=== PATIENT | female | born 1965 | race African-American/Black ===

== ENCOUNTER → 2019-09-11 | Day surgery (SDC) | payer OTHER ==
[~2019-09-11] MED LIST: ABILIFY5 MG PO; AMBIEN5 MG PO; ATENOLOL-CHLOR1 EAC1 PO; DEPAKOTE500 MG PO; DONEPEZIL HCL10 MG PO; EFFEXOR XR 3737.5 MG PO; FENTANYL CITRATE/PF 100MCG/2 ML INJ ONE; FLUTICASONE; GLUCAGON FOR INJ 1 MG VIAL ONE; IBUPROFEN400 MG PO; LABETALOL HCL 5 MG/ML 20ML VIAL ONE; LIDOCAINE HCL 2% LOCAL INJ 5 ML SDV VIAL INJ ONE; LYRICA75 MG PO; MIDAZOLAM HCL 2 MG/2 ML VIAL ONE; PROPOFOL IV EMULSION 10 MG/ML 50 ML VIAL ONE; SIMVASTATIN40 MG PO; VALIUM2 MG PO
[2019-09-11 14:25] VITALS: BP 146/90
[2019-09-11 15:54] LABS: WBC,FECAL (FECAL LACTOFERRIN) NEGATIVE (NEGATIVE)
--- OUTSIDE RECORDS SUMMARY | 2019-09-11 19:35 | XMS REPORT ---
[facility] Address Unknown Phone Unavailable Care Team Providers Care Racebook Writer Name Role Phone Unavailable Unavailable Payers Payer Name Policy Type Policy Number Effective Date Expiration Date Problems This patient has no known problems. Allergies, Adverse Reactions, Alerts Allergy Name Allergy Type Status Severity Reaction(s) Onset Date Inactive Date Treating Clinician Comments No Known Allergies DA Active U 2016-12-27 00:00:00 Medications This patient has no known medications. Results Test Description Test Time Test Comments Text Results Atomic Results Result Comments UA RFLX MICR CULT IF INDICATED 2019-08-04 13:09:00 UA COLOR (test code=COLU) YELLOW YELLOW UA APPEARANCE (test code=APPU) SL CLOUDY CLEAR UA GLUCOSE DIPSTICK (test code=DGLUU) NEGATIVE MG/DL NEGATIVE UA BILIRUBIN DIPSTICK (test code=BILU) NEGATIVE NEGATIVE UA KETONE DIPSTICK (test code=KETU) NEGATIVE MG/DL NEGATIVE UA SPECIFIC GRAVITY (test code=SGU) 1.005 1.000-1.030 UA BLOOD DIPSTICK (test code=AMANDA) NEGATIVE NEGATIVE UA PH DIPSTICK (test code=ADITYA) 7.0 5.0-8.0 UA PROTEIN DIPSTICK (test code=PROU) NEGATIVE MG/DL NEGATIVE UA UROBILINOGEN DIPSTICK (test code=URO) 0.2 EU/dL <=1.0 UA NITRITE DIPSTICK (test code=SHANTAL) NEGATIVE NEGATIVE UA LEUKOCYTE ESTERASE DIPSTICK (test code=LEUU) 2+ NEGATIVE UA WBC (test code=WBCUR) 11-20 /HPF 0-3 >10 WBC/HPF=PYURIA PRESENT URINE CULTURE PROCESSED UA RBC (test code=RBCU) NONE SEEN /HPF 0-3 UA EPITHELIAL CELLS (test code=EPIU) FEW /LPF NONE-FEW UA BACTERIA (test code=BACU) 1+ /HPF NEGATIVE SOURCE OF URINE: CLEAN CATCHIndication for culture: Dysuria/FrequencyUA [id number] 14:12:00* Test Item Value Reference Range Comments UA WBC (test code=WBCU) 30-40 /HPF 0-3 UA RBC (test code=RBCU) NONE SEEN /HPF 0-3 UA EPITHELIAL CELLS (test code=EPIU) MODERATE /LPF NONE-FEW UA BACTERIA (test code=BACU) 3+ /HPF NEGATIVE URINALYSIS [id number] 14:07:00* Test Item Value Reference Range Comments UA COLOR (test code=COLU) YELLOW YELLOW UA APPEARANCE (test code=APPU) CLEAR CLEAR UA GLUCOSE DIPSTICK (test code=DGLUU) NEGATIVE MG/DL NEGATIVE UA BILIRUBIN DIPSTICK (test code=BILU) NEGATIVE NEGATIVE UA KETONE DIPSTICK (test code=KETU) NEGATIVE MG/DL NEGATIVE UA SPECIFIC GRAVITY (test code=SGU) 1.015 1.000-1.030 UA BLOOD DIPSTICK (test code=AMANDA) NEGATIVE NEGATIVE UA PH DIPSTICK (test code=ADITYA) 6.5 5.0-8.0 UA PROTEIN DIPSTICK (test code=PROU) NEGATIVE MG/DL NEGATIVE UA UROBILINOGEN DIPSTICK (test code=URO) 0.2 EU/dL <=1.0 UA NITRITE DIPSTICK (test code=SHANTAL) NEGATIVE NEGATIVE UA LEUKOCYTE ESTERASE DIPSTICK (test code=LEUU) 2+ NEGATIVE BREAST ULTRASOUND [id number] 12:21:00- BREAST ULTRASOUND BILATERALULTRASOUND OF BOTH BREASTS: 07/14/2018Comparison is made to exams dated 07/08/2016 mammogram, 06/09/2015 mammogram, and 04/15/2014 mammogram - [facility]-. Color flow and real-time ultrasound of both breasts were performed. Nuñez scale images of the real-time examination were reviewed. Breast tissue has scattered fibroglandular background echotexture. Bilateral survey ultrasound demonstrates no suspicious sonographic abnormality; po stoperative changes in the right breast. No axillary lymphadenopathy.IMPRESSION : NEGATIVE There is no sonographic evidence of malignancy. Resume annual screen ing mammography in one year. Aram Nava M.D. ss/:07/14/2018 12:21:00 Entry: cp - 07/17/2018 08:36:31Imaging Technologist: Karley YOUNG, [facility]-FWletter sent: BIRADS 1-2 Combo FU Letter Ultrasound BI-RADS: 1 Negative
--- NOTE | 2019-09-11 21:25 | Operative Report ---
DATE OF PROCEDURE: 09/11/2019 SURGEON: Corwin Jorge MD PROCEDURES: 1. Esophagogastroduodenoscopy with biopsies. 2. Colonoscopy with polypectomy and biopsies. INDICATIONS FOR EGD: History of melena, nausea. INDICATIONS FOR COLONOSCOPY: Colorectal cancer screening, family history of colon cancer both mother and father, chronic diarrhea, and weight loss. MEDICATIONS: The patient was done under MAC, please see Anesthesiologist's note. PROCEDURE IN DETAIL: With the patient in left lateral decubitus position, a flexible fiberoptic Olympus gastroscope was introduced into the esophagus under direct visualization without any difficulty. There was some patchy erythema noted in the distal esophagus. The scope was then advanced with ease into the stomach and mucosa overlying the antrum and the body revealed some diffuse erythema and moderate edema, and biopsies were obtained and sent to stain for H pylori. The pylorus was of normal contour and shape, it was intubated with ease and the scope was advanced all the way to the second portion of the duodenum. Biopsies were obtained from the proximal second portion and the duodenal bulb to rule out sprue. The scope was then withdrawn back into the stomach and retroflexed. Mucosa overlying the fundus and the cardia appeared to be within normal limits. The scope was then straightened out, it was subsequently withdrawn. The patient tolerated the procedure well. IMPRESSION: 1. Distal esophagitis, mild. 2. Gastritis, biopsied. Biopsies sent to stain for Helicobacter pylori. 3. Rule out sprue. PLAN: Follow up histology. Initiate Protonix 40 mg one p.o. q.a.m. a.c. The patient was then turned around. After adequate lubrication of the anal canal, a flexible fiberoptic Olympus colonoscope was inserted into the rectum with ease and advanced all the way to the cecum. Mucosa overlying the cecum appeared to be within normal limits. The ileocecal valve was intubated and the scope was advanced into the terminal ileum, biopsies were obtained. The scope was then withdrawn back into the colon. It was then withdrawn slowly and mucosa overlying the ascending, transverse, descending, sigmoid, and rectum revealed some patchy mild inflammatory changes. Random biopsies were obtained from the left colon as well as from the rectum. Three polyps were hot biopsied from the sigmoid colon. The scope was retroflexed into the distal rectum and small internal hemorrhoids were noted, none of which was actively bleeding. The scope was then straightened out, it was subsequently withdrawn after securing an adequate stool specimen that was sent for the appropriate stool studies. The patient tolerated the procedure well. IMPRESSION: 1. Mild patchy colitis. 2. Sigmoid colon polyps x3, hot biopsied. 3. Proctitis, mild. 4. Internal hemorrhoids, none actively bleeding. PLAN: Follow up histology. Follow up stool studies. Initiate Bentyl 10 mg one p.o. t.i.d. VSL#3 one p.o. daily. Check CRP, sedimentation rate, and IBD panel. The patient might benefit considering strong family history with a followup colonoscopy in 2 to 3 years. Corwin Jorge MD [facility] [place][id number] cc: Demond Rader MD
[2019-09-12 11:27] LABS: C DIFFICILE TOXIN A&B AMP PROB NEGATIVE (NEGATIVE)
== END | disposition home or self-care (01) ==
LOC: OR 10:07
PROVIDERS: ATTEND Internal Medicine Gastroenterology
DX: K52.9 Noninfective gastroenteritis and colitis, unspecified (principal); K63.5 Polyp of colon; K29.50 Unspecified chronic gastritis without bleeding; B96.81 Helicobacter pylori [H. pylori] as the cause of diseases classified elsewhere; K20.9 Esophagitis, unspecified; K62.89 Other specified diseases of anus and rectum; K64.8 Other hemorrhoids; R63.4 Abnormal weight loss; G47.00 Insomnia, unspecified; G40.909 Epilepsy, unspecified, not intractable, without status epilepticus; M81.0 Age-related osteoporosis without current pathological fracture; I10 Essential (primary) hypertension; M19.90 Unspecified osteoarthritis, unspecified site; E78.5 Hyperlipidemia, unspecified; R01.1 Cardiac murmur, unspecified; F17.210 Nicotine dependence, cigarettes, uncomplicated; F41.9 Anxiety disorder, unspecified; F31.9 Bipolar disorder, unspecified; Z88.6 Allergy status to analgesic agent; Z01.810 Encounter for preprocedural cardiovascular examination; Z85.3 Personal history of malignant neoplasm of breast; Z80.0 Family history of malignant neoplasm of digestive organs
CPT/HCPCS: 36415; 43239; 45380; 45384; 83630; 83993; 85651; 86140; 86256; 86671; 87045; 87177; 87328; 87493; 93005; J1610; J2001; J2250; J2704; J3010; J3490

== ENCOUNTER → 2021-03-11 | Day surgery (SDC) | payer OTHER ==
[~2021-03-11] MED LIST changes: +BUPIVACAINE HCL 0.5% INJ 30 ML VIAL INJ ONE; +DEXAMETHASONE SOD PHOS INJ 4 MG/ML VIAL ONE; -GLUCAGON FOR INJ 1 MG VIAL ONE; +HYDROMORPHONE 1MG/1ML INJ ONE; +KETOROLAC TROMETHAMINE 30 MG/ML VIAL ONE; -LABETALOL HCL 5 MG/ML 20ML VIAL ONE; -MIDAZOLAM HCL 2 MG/2 ML VIAL ONE; +ONDANSETRON HCL INJ 2MG/ML 2ML 2 MG/ML VIAL ONE; +POVIDONE IODINE 0.05% 0.05 % ML PO ONE; +PROPOFOL IV EMULSION 10 MG/ML 20 ML VIAL ONE; -PROPOFOL IV EMULSION 10 MG/ML 50 ML VIAL ONE; +SEVOFLURANE INHAL SOLN 250 ML PEN BTL ONE; +SODIUM CHLORIDE 0.9% 50ML 100 ML ONE; +ULTRAM50 MG PO
[2021-03-11 09:15] VITALS: BP 160/88
== END | disposition home or self-care (01) ==
LOC: OR 05:44
PROVIDERS: ATTEND Specialist
DX: G56.02 Carpal tunnel syndrome, left upper limb (principal); Z85.3 Personal history of malignant neoplasm of breast; I10 Essential (primary) hypertension; M19.042 Primary osteoarthritis, left hand; Z01.810 Encounter for preprocedural cardiovascular examination; Z01.812 Encounter for preprocedural laboratory examination; Z20.822 Contact with and (suspected) exposure to COVID-19
CPT/HCPCS: 64721; 81025; 93005; J0690; J1100; J1170; J1885; J2001; J2405; J2704; J3010; U0002